=== PATIENT | male | born 1940 | race Two or more races ===

== ENCOUNTER 2023-08-02 08:22 | Emergency (ER) | payer OTHER ==
[~2023-08-02] VITALS: Ht 170.2 cm; Wt 77.6 kg
[2023-08-02] MEDS ORDERED: VAZALORE81 MG PO (09:04)
[2023-08-02] MEDS ORDERED: ENALAPRIL M1 MG/1 ML PO (09:05)
[2023-08-02] MEDS ORDERED: CLONAZEPAM1 M1 PO (09:05)
[2023-08-02] MEDS ORDERED: ECOTRIN325 M1 PO (09:05)
== END 2023-08-02 10:41 | disposition home or self-care (01) ==
LOC: ER 08:23
DX: H34.231 Retinal artery branch occlusion, right eye (principal); I10 Essential (primary) hypertension